=== PATIENT | female | born 1940 | race Caucasian/White ===

== ENCOUNTER → 2016-07-12 | Outpatient (CLI) | payer OTHER | LOC: FIMAGING 12:14 | PROVIDERS: ATTEND Internal Medicine | DX: N28.89 Other specified disorders of kidney and ureter (principal); E11.9 Type 2 diabetes mellitus without complications ==

== ENCOUNTER → 2016-10-31 | Outpatient (CLI) | payer OTHER | LOC: FIMAGING 16:19 | PROVIDERS: ATTEND Internal Medicine | DX: I50.9 Heart failure, unspecified (principal); M25.531 Pain in right wrist ==

== ENCOUNTER → 2016-11-20 | Outpatient (CLI) | payer OTHER | LOC: BHFA 13:15 | PROVIDERS: ATTEND Internal Medicine Cardiovascular Disease | DX: I25.10 Atherosclerotic heart disease of native coronary artery without angina pectoris (principal) ==

== ENCOUNTER → 2016-11-22 | Outpatient (CLI) | payer OTHER | LOC: BHFA 13:30 | PROVIDERS: ATTEND Internal Medicine Cardiovascular Disease | DX: R06.02 Shortness of breath (principal); I77.9 Disorder of arteries and arterioles, unspecified | CPT/HCPCS: 78452; 93017; A9500; J2785 ==

== ENCOUNTER → 2017-01-01 | Outpatient (CLI) | payer OTHER ==
[~2017-01-01] MED LIST: IOPAMIDOL (ISOVUE 370) 100 ML BTL IV ONE
== END ==
LOC: FIMAGING 13:21
PROVIDERS: ATTEND Internal Medicine
DX: N20.0 Calculus of kidney (principal); K44.9 Diaphragmatic hernia without obstruction or gangrene; E78.00 Pure hypercholesterolemia, unspecified; I73.9 Peripheral vascular disease, unspecified; I70.0 Atherosclerosis of aorta; I70.8 Atherosclerosis of other arteries
CPT/HCPCS: 71275; 74160; Q9967

== ENCOUNTER 2017-03-28 20:01 | Inpatient (IN) | payer OTHER ==
--- NOTE | 2017-03-28 20:39 | EDPHY ---
General - History Smoking Status: Never smoked Narrative: CHIEF COMPLAINT: Right-sided headache when coughing HISTORY OF PRESENT ILLNESS: Patient complains of right-sided headache when coughing. This started abruptly 2 days ago. Was is severe, 10/10 pain at that time. The pain was constant for nearly 2 days but has started to improve. It is now only present when she sneezes, coughs or bears down. She has no headache at rest. She feels as though her chest pain may have been worse over the past 2 days. She also feels that her shortness of breath may have been worse over the past few days. She was recently treated for pneumonia by primary care physician Lauri and his complete with this. She has no fever. No difficulty with speech. No unilateral motor or sensory complaints. She does take warfarin status post CABG and previous PE. No other associated complaints or modifying factors. REVIEW OF SYSTEMS: Ten systems reviewed and are negative unless otherwise noted in the HPI PCP: Dr. Negron, transitioning to Dr. Garcia SPECIALISTS: Dr. Hamm, cardiology Dr. Doll, ophthalmology PAST MEDICAL HISTORY: Hypertension, dyslipidemia, coronary artery disease status post CABG, Dupuytren contracture, diabetes mellitus type 2, PE PAST SURGICAL HISTORY: No recent surgeries. s/p CABG SOCIAL HISTORY: Nonsmoker. FAMILY HISTORY: Noncontributory EXAMINATION General Appearance: Alert, no distress Head: normocephalic, atraumatic. No Ibrahim sign. No raccoon eyes. Eyes: Pupils equal and round, no conjunctival pallor or injection. EOMs intact. No nystagmus ENT, Mouth: Mucous membranes moist. Uvula midline. Airway widely patent Neck: Normal inspection, supple, non-tender Respiratory: Lungs are clear to auscultation. No wheeze, rhonchi or crackles Cardiovascular: Regular rate and rhythm Gastrointestinal: Abdomen is soft and nontender Back: non-tender, no bony abnormalities Neurological: GCS 15. Cranial nerves 2-12 grossly intact A&O, nonfocal, strength is symmetric in all 4 limbs. No pronator drift. Normal finger-to- nose. No facial droop. Skin: Warm and dry, no rash. No petechiae or purpura. No facial cellulitis. Extremities: Nontender, no pedal edema Psychiatric: Mood and affect normal DIFFERENTIAL DIAGNOSES: Including but not limited to temporal cell arteritis, intracranial hemorrhage, cephalgia, hypertensive urgency, hypertensive emergency, ACS, TIA, CVA MDM: 8:30 p.m. Intermittent right temporal headache with mild worsening of shortness of breath and chest pain. She has no evidence of stroke by history or examination. No evidence of TIA described. She does take Coumadin and has this headache that is worse intermittently with Valsalva, cough or sneezing. She is in no acute distress but is markedly hypertensive. She has no hypotension or hypoxia. Lungs are clear. I have ordered cardiac workup and CT scan of the head. I will discuss with Dr. Carrasco 8:40 p.m. Case discussed with Dr. Carrasco and he will evaluate the patient. She is currently in CT scan. 9:[address] Carrasco has evaluated the patient. He will assume primary care of the patient at this time. Please see his note for further care and disposition. EKG interpretation: Dr. Carrasco SUPERVISION: Patient was evaluated and examined in conjunction with my secondary supervising physician as documented. We have both examined the patient. (Peyman Hardin) Medical Decision Making: Independent physician evaluation I evaluated and participated in the management of the patient. I also evaluated the patient independently. My co-signature indicates that I have reviewed this chart and I agree with the findings and plan of care as documented. My personal H&P findings include: The patient presents to the ED for evaluation of a several day history of a right temporal headache. The patient reports she is currently being treated for pneumonia. She reportedly sneeze several days ago when she developed an acute right-sided headache. The patient is currently anticoagulated with Coumadin. She denies any acute numbness or weakness. She denies any gait instability or dysarthria. Physical exam General Appearance: Alert, no distress Eyes: Pupils equal and round no pallor or injection Head: No tenderness to palpation along temporal artery ENT, Mouth: Mucous membranes moist Respiratory: There are no retractions, lungs are clear to auscultation Cardiovascular: Regular rate and rhythm Gastrointestinal: Abdomen is soft and nontender, no masses, bowel sounds normal Neurological: A&O, normal motor function, normal sensory exam, normal cranial nerves Skin: Warm and dry, no rashes Musculoskeletal: Neck is supple nontender Extremities: symmetrical, full range of motion Psychiatric: Patient is oriented X 3, there is no agitation ED course The patient was taken for stat CT scan of her head given her anticoagulant use and hypertension with associated headache. There is no evidence of an obvious intracranial hemorrhage on my evaluation. The patient return from CT was noted to have a blood pressure of 250/150. An IV was established. She received 20 mg of labetalol. She was moved into resuscitation room. I reviewed the patient's past medical records in [facility]. The patient is currently on bisprostol, isosorbide and lisinopril. Re-evaluated the patient at 10:00 p.m.. Blood pressure is currently 174/78 with a heart rate of 65. A CT angiogram of the head and neck have been ordered. The patient will require admission to the hospital. Consultation is made with the hospitalist service. The patient will be admitted by Dr. Alcantar from the hospitalist service this evening. I will defer to him to follow up on the patient's angiographic studies. (Michael Carrasco) - Diagnostics EKG Interpretation: EKG: Complete interpretation has been separately recorded in the [facility] archive. Summary impression: Sinus rhythm, PACs, no ST segment elevation noted (Michael Carrasco) Imaging Results: Imaging Impressions Head CTA 03/28/17 00:00 Impression: CT head: 1. No acute or enhancing abnormalities. 2. Moderate generalized volume loss. 3. Chronic supratentorial white matter ischemic changes, better seen on comparison noncontrast CT head performed earlier today. CTAs: 1. Mild stenosis of the right carotid bulb secondary to calcified plaque. 2. Left carotid bulb widely patent status post endarterectomy. 3. Ostial plaque at the origin of the left vertebral artery which may result in mild stenosis. Dr. Guaman discussed these findings by telephone with Hernán Alcantar MD on 03/29/2017 0:[address] 03/28/17 20:29 Impression: 1. No acute intracranial abnormalities. 2. Moderate generalized volume loss. 3. Moderate supratentorial chronic white matter ischemic changes. Chest X-Ray 03/28/17 20:41 Impression: 1. Stable elevation of the left hemidiaphragm and associated left basilar atelectasis. 2. Enlarged cardiac silhouette. Neck CTA 03/28/17 21:49 Impression: CT head: 1. No acute or enhancing abnormalities. 2. Moderate generalized volume loss. 3. Chronic supratentorial white matter ischemic changes, better seen on comparison noncontrast CT head performed earlier today. CTAs: 1. Mild stenosis of the right carotid bulb secondary to calcified plaque. 2. Left carotid bulb widely patent status post endarterectomy. 3. Ostial plaque at the origin of the left vertebral artery which may result in mild stenosis. Dr. Guaman discussed these findings by telephone with Hernán Alcantar MD on 03/29/2017 0:11 hours. - Objective Vital Signs: Initial Vital Signs Temperature (C) 36.4 C 03/28/17 20:08 Heart Rate 65 03/28/17 20:08 Respiratory Rate 16 03/28/17 20:08 Blood Pressure 229/108 H 03/28/17 20:08 O2 Sat (%) 93 03/28/17 20:08 O2 Delivery Mode Room Air Allergies/Adverse Reactions: Heparin Analogues [Heparin Agents] Allergy (Severe, Verified 07/24/12 16:49) HIT amoxicillin [Amoxicillin] Allergy (Verified 06/08/13 04:21) sitagliptin [From Januvia] Allergy (Verified 03/28/17 22:27) Hives SURGICAL TAPE Allergy (Severe, Uncoded 07/24/12 16:49) WELTS Home Medications: Medication Instructions Recorded Atorvastatin Calcium [Lipitor 40 40 mg PO HS #30 tab 06/09/13 mg (*)] Aspirin [Aspirin 81mg (*)] 81 mg PO HS 09/08/15 Cholecalciferol (Vitamin D3) 5,000 unit PO HS 09/08/15 [Vitamin D3] Isosorbide Mononitrate [Imdur 30 30 mg PO HS 09/08/15 mg (*)] Lisinopril [Zestril 40 mg (*)] 40 mg PO HS 09/08/15 Warfarin Sodium [Coumadin 3MG (*)] 3 mg PO SUMOWETHSA@16 09/08/15 Warfarin Sodium [Coumadin 3MG (*)] 4.5 mg PO TUFR@16 09/08/15 metFORMIN SR [Glucophage XR 750 mg 1,500 mg PO HS 09/08/15 (*)] Bisoprolol Fumarate [Zebeta (*)] 5 mg PO DAILY 03/28/17 metFORMIN HCL [Metformin HCl ER] 500 mg PO HS 03/28/17 Laboratory Results: Laboratory Results 03/28/17 21:20 03/28/17 21:20 03/28/17 03/28/17 03/28/17 21:20 21:20 21:20 WBC 6.95 10^3/uL 10^3/uL (3.80-9.50) RBC 5.14 10^6/uL 10^6/uL (4.18-5.33) Hgb 13.8 g/dL g/dL (12.6-16.3) Hct 43.0 % % (38.0-47.0) MCV 83.7 fL fL (81.5-99.8) MCH 26.8 pg L pg (27.9-34.1) MCHC 32.1 g/dL L g/dL (32.4-36.7) RDW 13.7 % % (11.5-15.2) Plt Count 281 10^3/uL 10^3/uL (150-400) MPV 10.3 fL fL (8.7-11.7) Neut % (Auto) 54.9 % % (39.3-74.2) Lymph % (Auto) 35.4 % % (15.0-45.0) [place] % (Auto) 6.0 % % (4.5-13.0) Eos % (Auto) 2.3 % % (0.6-7.6) Baso % (Auto) 1.0 % % (0.3-1.7) Nucleat RBC Rel Count 0.0 % % (0.0-0.2) Absolute Neuts (auto) 3.81 10^3/uL 10^3/uL (1.70-6.50) Absolute Lymphs (auto) 2.46 10^3/uL 10^3/uL (1.00-3.00) Absolute Monos (auto) 0.42 10^3/uL 10^3/uL (0.30-0.80) Absolute Eos (auto) 0.16 10^3/uL 10^3/uL (0.03-0.40) Absolute Basos (auto) 0.07 10^3/uL 10^3/uL (0.02-0.10) Absolute Nucleated RBC 0.00 10^3/uL 10^3/uL (0-0.01) Immature Gran % 0.4 % % (0.0-1.1) Immature Gran # 0.03 10^3/uL 10^3/uL (0.00-0.10) ESR 15 MM/HR MM/HR (0-30) PT 25.1 SEC H SEC (12.0-15.0) INR 2.28 H (0.83-1.16) APTT 41.4 SEC H SEC (23.0-38.0) Sodium 141 mEq/L mEq/L (135-145) Potassium 4.2 mEq/L mEq/L (3.5-5.2) Chloride 103 mEq/L mEq/L (97-110) Carbon Dioxide 21 mEq/l L mEq/l (22-31) Anion Gap 17 mEq/L H mEq/L (8-16) BUN 20 mg/dL mg/dL (7-23) Creatinine 0.9 mg/dL mg/dL (0.6-1.0) Estimated GFR > 60 Glucose 144 mg/dL H mg/dL (70-100) Calcium 9.9 mg/dL mg/dL (8.5-10.4) Troponin I < 0.012 ng/mL ng/mL (0.000-0.034) C-Reactive Protein Cancelled NT-Pro-B Natriuret Pep 1690 pg/mL H pg/mL (0-450) Medications Given: Bisoprolol Fumarate (Zebeta) 5 mg PO DAILY [facility] Stop: 09/25/17 08:59 Last Admin: 03/29/17 08:19 Dose: 5 mg Isosorbide Mononitrate (Imdur) [address] [facility] Stop: 09/24/17 23:44 Last Admin: 03/29/17 00:02 Dose: 30 mg Lisinopril (Zestril) [address] [facility] Stop: 09/24/17 23:44 Last Admin: 03/29/17 00:02 Dose: 40 mg Metformin HCl (Glucophage Xr) 1,[address] [facility] Stop: 09/25/17 00:14 Last Admin: 03/29/17 00:18 Dose: 1,500 mg Metformin HCl (Glucophage Xr) [address] [facility] Stop: 09/25/17 00:14 Last Admin: 03/29/17 00:18 Dose: 500 mg Warfarin Sodium (Coumadin) 4.5 mg PO TUFR@16 [facility] Stop: 09/25/17 00:14 Last Admin: 03/29/17 00:09 Dose: 4.5 mg Discontinued Medications Sodium Chloride (Ns) 1,000 mls @ 1,000 mls/hr IV ONCE ONE Stop: 03/29/17 00:16 Last Admin: 03/29/17 00:01 Dose: 1,000 mls Labetalol HCl (Trandate Injection) 20 mg IVP EDNOW ONE Stop: 03/28/17 21:23 Last Admin: 03/28/17 21:42 Dose: 20 mg Departure - Departure Disposition: [facility] Acute Clinical Impression: Hypertensive urgency Hypertension Qualifiers: Hypertension type: unspecified Qualified Code(s): I10 - Essential (primary) hypertension Acute headache Qualifiers: Headache type: unspecified Intractability: not intractable Qualified Code(s): R51 - Headache Condition: Fair
--- NOTE | 2017-03-28 20:55 | CPEKG ---
Heart Rate: 61 RR Interval: 984 P-R Interval: 176 QRSD Interval: 92 QT Interval: 420 QTC Interval: 423 P [place]: 39 QRS [place]: 5 T Wave [place]: 99 EKG Severity - ABNORMAL ECG - EKG Impression: SINUS RHYTHM EKG Impression: MULTIPLE ATRIAL PREMATURE COMPLEXES Electronically Signed By: Michael Carrasco 28-Mar-2017 21:38:26
[2017-03-28] MEDS ORDERED: LABETALOL HCL 5 MG/ML 20 ML MDV IVP ONE (21:22)
[2017-03-28 21:31] LABS: PLATELET COUNT 281 10^3/uL (150-400)
[2017-03-28 21:42] LABS: INR 2.28 (0.83-1.16); PROTIME(PATIENT) 25.1 SEC (12.0-15.0)
[2017-03-28] MEDS ORDERED: IOPAMIDOL (ISOVUE 370) 100 ML BTL IV ONE (21:57)
[2017-03-28] MEDS ORDERED: ONDANSETRON DISINTEGRATING 4 MG TAB PO PRN (22:15)
[2017-03-28] MEDS ORDERED: ONDANSETRON 4 MG/2 ML VIAL IVP PRN (22:15)
[2017-03-28] MEDS ORDERED: NS 1,000 ML IV ONE (23:17)
--- NOTE | 2017-03-28 23:48 | PDGENHP ---
History and Physical - Chief Complaint Headache - History of Present Illness 76 yo F w/ hx of CAD s/p CABG, PE on warfarin, HTN, and DM presents with IYER. Patient reports she was recently diagnosed with pneumonia and finished a course of azithromycin. During a sneeze she noticed sudden onset of severe R temporal pain. This occurred 2 days ago and had improved gradually since. She decided to come in today for further evaluation. In the ED her BP was noted to be severely elevated (SBP>220) so she was admitted for observation. History Information - Allergies/Home Medication List Allergies/Adverse Reactions: Heparin Analogues [Heparin Agents] Allergy (Severe, Verified 07/24/12 16:49) HIT amoxicillin [Amoxicillin] Allergy (Verified 06/08/13 04:21) sitagliptin [From Januvia] Allergy (Verified 03/28/17 22:27) Hives SURGICAL TAPE Allergy (Severe, Uncoded 07/24/12 16:49) WELTS Home Medications: Aspirin [Aspirin 81mg (*)] 81 mg PO HS 09/08/15 [Last Taken 03/27/17] Cholecalciferol (Vitamin D3) [Vitamin D3] 5,000 unit PO HS 09/08/15 [Last Taken 09/07/15] Isosorbide Mononitrate [Imdur 30 mg (*)] 30 mg PO HS 09/08/15 [Last Taken ] Lisinopril [Zestril 40 mg (*)] 40 mg PO HS 09/08/15 [Last Taken 03/27/17] Warfarin Sodium [Coumadin 3MG (*)] 3 mg PO SUMOWETHSA@16 09/08/15 [Last Taken ] Warfarin Sodium [Coumadin 3MG (*)] 4.5 mg PO TUFR@16 09/08/15 [Last Taken ] metFORMIN SR [Glucophage XR 750 mg (*)] 1,500 mg PO HS 09/08/15 [Last Taken 02/01] Bisoprolol Fumarate [Zebeta (*)] 5 mg PO DAILY 03/28/17 [Last Taken 03/28/17] metFORMIN HCL [Metformin HCl ER] 500 mg PO HS 03/28/17 [Last Taken 03/27/17] I have personally reviewed and updated: family history, medical history - Past Medical History coronary artery disease, diabetes type 2, DVT, hypertension - Surgical History Reports: coronary bypass surgery Additional surgical history: L CEA - Family History Positive for: stroke - Social History Smoking Status: Never smoked Review of Systems Review of Systems: ROS: 10pt was reviewed & negative except for what was stated in HPI & below Physical Exam Physical Exam: Temp Pulse Resp BP Pulse Ox 36.4 C 64 16 191/73 H 94 03/28/17 20:08 03/28/17 23:04 03/28/17 23:04 03/28/17 23:04 03/28/17 23:04 Constitutional: no apparent distress, not in pain Eyes: PERRL, EOMI Ears, Nose, Mouth, Throat: moist mucous membranes, no oral mucosal ulcers Cardiovascular: regular rate and rhythym, systolic murmur (LSB, 2/6) Respiratory: no respiratory distress, inspiratory crackles (LLL) Gastrointestinal: normoactive bowel sounds, soft, non-tender abdomen Skin: warm, normal color Musculoskeletal: full muscle strength, no muscle tenderness Neurologic: AAOx3, CN II-XII Intact Psychiatric: interacting appropriately, not anxious Lab Data & Imaging Review 03/28/17 21:20 03/28/17 21:20 WBC 6.95 10^3/uL (3.80-9.50) 03/28/17 21:20 RBC 5.14 10^6/uL (4.18-5.33) 03/28/17 21:20 Hgb 13.8 g/dL (12.6-16.3) 03/28/17 21:20 Hct 43.0 % (38.0-47.0) 03/28/17 21:20 MCV 83.7 fL (81.5-99.8) 03/28/17 21:20 MCH 26.8 pg (27.9-34.1) L 03/28/17 21:20 MCHC 32.1 g/dL (32.4-36.7) L 03/28/17 21:20 RDW 13.7 % (11.5-15.2) 03/28/17 21:20 Plt Count 281 10^3/uL (150-400) 03/28/17 21:20 MPV 10.3 fL (8.7-11.7) 03/28/17 21:20 Neut % (Auto) 54.9 % (39.3-74.2) 03/28/17 21:20 Lymph % (Auto) 35.4 % (15.0-45.0) 03/28/17 21:20 [place] % (Auto) 6.0 % (4.5-13.0) 03/28/17 21:20 Eos % (Auto) 2.3 % (0.6-7.6) 03/28/17 21:20 Baso % (Auto) 1.0 % (0.3-1.7) 03/28/17 21:20 Nucleat RBC Rel Count 0.0 % (0.0-0.2) 03/28/17 21:20 Absolute Neuts (auto) 3.81 10^3/uL (1.70-6.50) 03/28/17 21:20 Absolute Lymphs (auto) 2.46 10^3/uL (1.00-3.00) 03/28/17 21:20 Absolute Monos (auto) 0.42 10^3/uL (0.30-0.80) 03/28/17 21:20 Absolute Eos (auto) 0.16 10^3/uL (0.03-0.40) 03/28/17 21:20 Absolute Basos (auto) 0.07 10^3/uL (0.02-0.10) 03/28/17 21:20 Absolute Nucleated RBC 0.00 10^3/uL (0-0.01) 03/28/17 21:20 Immature Gran % 0.4 % (0.0-1.1) 03/28/17 21:20 Immature Gran # 0.03 10^3/uL (0.00-0.10) 03/28/17 21:20 ESR 15 MM/HR (0-30) 03/28/17 21:20 PT 25.1 SEC (12.0-15.0) H 03/28/17 21:20 INR 2.28 (0.83-1.16) H 03/28/17 21:20 APTT 41.4 SEC (23.0-38.0) H 03/28/17 21:20 Sodium 141 mEq/L (135-145) 03/28/17 21:20 Potassium 4.2 mEq/L (3.5-5.2) 03/28/17 21:20 Chloride 103 mEq/L (97-110) 03/28/17 21:20 Carbon Dioxide 21 mEq/l (22-31) L 03/28/17 21:20 Anion Gap 17 mEq/L (8-16) H 03/28/17 21:20 BUN 20 mg/dL (7-23) 03/28/17 21:20 Creatinine 0.9 mg/dL (0.6-1.0) 03/28/17 21:20 Estimated GFR > 60 03/28/17 21:20 Glucose 144 mg/dL (70-100) H 03/28/17 21:20 Calcium 9.9 mg/dL (8.5-10.4) 03/28/17 21:20 Troponin I < 0.012 ng/mL (0.000-0.034) 03/28/17 21:20 C-Reactive Protein Cancelled 03/28/17 21:20 NT-Pro-B Natriuret Pep 1690 pg/mL (0-450) H 03/28/17 21:20 Imaging Review: Imaging Impressions Head CT 03/28/17 20:29 Impression: 1. No acute intracranial abnormalities. 2. Moderate generalized volume loss. 3. Moderate supratentorial chronic white matter ischemic changes. Chest X-Ray 03/28/17 20:41 Impression: 1. Stable elevation of the left hemidiaphragm and associated left basilar atelectasis. 2. Enlarged cardiac silhouette. Visualized and Interpreted EKG results: Yes EKG Interpretation: Positive for: normal sinsus rhythm, other (multiple PACs) Assessment & Plan Assessment: 76 yo F w/ hx of CAD, PE, HTN, and DM presents w/ R temporal IYER and found to be severely hypertensive. Plan: 1. Chronic, essential hypertension c/b acute hypertensive urgency - Noted to have SBP>220 while in the ED. Treated with Labetalol 20 mg IV x1 with good response to SBP 170-180 range. Review of PCP records shows BP of 139/80 during office visit 03/25, so odd for such a drastic elevation in just a 3 day period. Recent illness, pain, stress, and dehydration are possible explanations, but admitted for observation noting severe elevation. No clear evidence of end organ damage at this time. Troponin negative and ECG without signs of ischemia. - Will continue home Lisinopril 40 mg qHS, Imdur 30 mg qHS, and Bisoprolol 5 mg qD for now and monitor BP - Will give 1 L NS in case dehydration is contributing 2. R temporal headache - Present for 2 days with onset after a sneeze. Temporal nature concerning for temporal cell arteritis but ESR WNL making this a very unlikely diagnosis. Additionally, although patient complains of subtle blurred vision with her glasses on only, no real objective visual loss currently. CTH unremarkable. - Low threshold to start high dose steroids if visual disturbance were to worsen or change - CTA Head/neck for further evaluation 3. CAD s/p CABG - Continue ASA, statin, BB, DICKSON. 4. 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 Continue warfarin and monitor daily INR. 5. DM2 - On metformin chronically, will continue. Diet - Regular Code - Full Ppx - Warfarin Dispo - Admit to PCU for observation
[2017-03-28] MEDS ORDERED: WARFARIN SODIUM 3 MG TAB PO SCH (23:51)
[2017-03-29] MEDS ORDERED: metFORMIN SR 750 MG TAB.SR PO SCH ×2 (00:01→21:00)
[2017-03-29] MEDS: LISINOPRIL 40 MG TAB PO SCH ×2 (00:02→19:54)
[2017-03-29] MEDS: ISOSORBIDE MONONITRATE 30 MG TAB.SR PO SCH ×2 (00:02→19:56)
[2017-03-29] MEDS ORDERED: WARFARIN SODIUM 3 MG TAB PO SCH (00:15)
[2017-03-29] MEDS ORDERED: metFORMIN SR 500 MG TAB PO SCH ×2 (00:15→21:00)
[2017-03-29] MEDS: metFORMIN SR 500 MG TAB PO SCH ×2 (00:18→21:50)
[2017-03-29] MEDS: metFORMIN SR 750 MG TAB.SR PO SCH ×2 (00:18→21:50)
[2017-03-29 04:39] LABS: PLATELET COUNT 235 10^3/uL (150-400)
[2017-03-29 04:51] LABS: INR 2.35 (0.83-1.16); PROTIME(PATIENT) 25.7 SEC (12.0-15.0)
[2017-03-29] MEDS ORDERED: BISOPROLOL FUMARATE 5 MG TAB PO SCH (09:00)
--- NOTE | 2017-03-29 11:12 | NEUROPROG ---
Assessment: HOSPITAL NEUROLOGY CONSULT REQUESTING: Pilar Trimble MD REASON: headache HPI: 76 year old left-handed woman who presented to our ED 03/28 with abrupt onset right temporal headache. She has a background of CAD s/p CABG. She reports a TIA manifest as slurred speech after her CABG. She had a left CEA for asymptomatic carotid stenosis with resulting ipsilateral vocal cord paralysis and left neck numbness. She also is anticoagulated to PE. She is being treated for HTN, HLD, DM2. She recently finished a course of outpatient oral antibiotics for pneumonia for which symptoms manifested about 2 weeks ago. 2 days prior to admission she had a sudden onset of right temporal headache. She sneezed and had sudden onset of very brief "searing" pain. She states the head pain would only manifest with coughing, sneezing or clearing her throat, last a few seconds, and then she would be pain free. She also noted some blurring of her vision (both eyes), though this was very mild. This was of great concern so she reported to our ED on 03/28. On evaluation, she was found to have a BP of 218/108. This was treated with labetalol IV, with gradual improvement in her BP. She had a CT head wo, which showed nothing acute including new ischemia or hemorrhage. CTA head/neck was also done showing no aneurysm or hemodynamically significant stenosis of the major vessels. ESR was 15. She was admitted for further observation. She reports her headaches have improved greatly in severity since her BP was treated, but there is still some lingering pain with coughing, sneezing and throat clearing. She did not experience any focal neurologic deficits, such as weakness, sensory loss, speech /language change, gait change, dizziness. No fevers, chills, neck stiffness, photophobia. No jaw claudication, scalp tenderness. No positional headache. No head/neck injury. No recent head/neck/dental instrumentation. ROS: As per the HPI, otherwise a complete 12 point ROS was performed and is negative ALLERGIES AND MEDS: As recorded in the EMR - reviewed and reconciled PFSH: As per the intake H&P by Dr. Alcantar from 03/28 EXAM: VS reviewed in EMR GEN: WDWN laying in NAD HEENT: NCAT, sclera anicteric, conjunctiva not injected, MMM, oropharynx clear, no scalp tenderness NECK: supple, nontender, no meningismus CV: RRR s1 s2 wo m/r/c/g. Carotid pulses 2+ wo bruit NEURO: MS: awake, alert, oriented to all spheres. Speech nondysarthric. No language disturbance. Follows commands. Attends to both sides. Recent/remote memory grossly intact. Mood euthymic. Good fund of knowledge. CN: pupils 3mm round and reactive. Unable to visualize fundi. VFF. Primary gaze centered. Full ocular motility. Facial sensation preserved. Face symmetric. Hearing grossly intact to finger rub. Palatoglossal movements intact. Shoulder shrug and head turn strong. MOTOR: normal bulk/tone. No adventitial movements. Bilateral hip flexor weakness at 4+/5, but otherwise full power throughout. SENSORY: symmetric and intact LT/PP throughout. No extinction. COORD: no ataxia FN/HS. Gurmeet preserved. REFLEX: plantars down. No clonus. Absent ankle jerks, other DTRS 2/4. GAIT: deferred to PT safety eval DATA REVIEW: Labs reviewed in EMR PERSONALLY INTERPRETED RESULTS AND DATA: CT head wo - global volume loss, hypodensity in the subcortical/periventricular white matter reflective of chronic microvascular ischemic change CTA head/neck - s/p left CEA, which is patent, about 40% stenosis right carotid bulb, left vertebral artery stenotic at takeoff (noncritical), carotid siphon calcifications without hemodynamically significant stenosis, otherwise unremarkable IMPRESSION AND RECOMMENDATIONS: // HYPERTENSIVE EMERGENCY // VALSALVA INDUCED IYER Patient with a Valsalva-induced IYER in the setting of extremely elevated BP. Symptoms improved with treatment of BP. Very much likely a hypertensive phenomenon with worsening pressure with Valsalva-like maneuvers given the semiology. I suspect her lingering symptoms will continue to improve in the next 2-3 days with maintenance of reduced BP. She is not interested in any symptomatic treatments and would like to just see how her symptoms progress over the next 2-[address] and CTA doesn't show anything sinister, such as SAH, IPH, aneurysm, acute /subacute ischemia, mass/space occupying lesion, etc... Clinical semiology not typical for inflammatory process like and her ESR is normal. She has an unremarkable clinical exam. I advised she take home BP measures twice daily and followup with her PCP next week. She can followup with me in clinic in 2 weeks. ED return parameters reviewed, including but not limited to worsening IYER, escalation in BP, new neurologic deficits, nausea/vomiting, change in LOC, cognitive changes. 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
[2017-03-29] MEDS: ACETAMINOPHEN 325 MG TAB PO PRN (13:17)
[2017-03-29] MEDS ORDERED: METOPROLOL TARTRATE 25 MG TAB PO ONE (14:30)
--- NOTE | 2017-03-29 15:53 | ASMTCMCOM ---
CM Note CM Note Notes: Patient admitted for hypertensive urgency. Neurology saw today and recommended that she follow up with PCP and also with neuro in two weeks. Patient will likely discharge independently; no therapies were ordered, and she is independent at baseline. CM available if needs change. Date Signed: 03/29/2017 03:52 PM Electronically Signed By:Hansa Eid RN
[2017-03-29] MEDS: WARFARIN SODIUM 3 MG TAB PO SCH (16:50)
--- NOTE | 2017-03-29 17:34 | HOSPPROG ---
Hospitalist Progress Note Assessment/Plan: # Hypertensive urgency - systolic blood pressures improved overnight initially systolics in the 200s now in the 170's Telemetry(personally reviewed and interpreted) sinus rhythm Oxygen saturations 94% on room air - discontinue bisoprolol - continue DICKSON-inhibitor - up titrate metoprolol twice daily # Valsalva induced headache- CTA head - no concerning findings patient seen by Neurology who felt symptoms consistent with hypertension and history of Valsalva - aggressive blood pressure management - p.r.n. Tylenol # prophylaxis Lovenox # diet regular # disposition greater than 2 midnights as patient requires ongoing medication titration Have discussed the case with the RN- will initiate metoprolol 12.5 and up titrated to 25 mg this evening Subjective: Right temporal pain improved Objective: Vital Signs Temp Pulse Resp BP Pulse Ox 36.7 C 67 18 153/77 H 93 03/29/17 16:00 03/29/17 16:00 03/29/17 16:00 03/29/17 16:00 03/29/17 16:00 Laboratory Results 03/29/17 04:11 03/29/17 04:11 03/28/17 03/29/17 03/30/17 05:59 05:59 05:59 Intake Total 1210 200 Balance 1210 200 PT 25.7 SEC (12.0-15.0) H 03/29/17 04:11 INR 2.35 (0.83-1.16) H 03/29/17 04:11 - Physical Exam Constitutional: no apparent distress Eyes: anicteric sclera Ears, Nose, Mouth, Throat: moist mucous membranes Cardiovascular: regular rate and rhythym, systolic murmur Respiratory: no respiratory distress Gastrointestinal: normoactive bowel sounds Genitourinary: no bladder fullness Skin: warm Musculoskeletal: No asymmetric calves Neurologic: AAOx3, No facial droop Psychiatric: interacting appropriately Lymph, Heme, Immunologic: no cervical LAD ICD10 Worksheet Patient Problems: Problems Problem Status Onset Acute headache Acute Hypertension Acute Hypertensive urgency Acute Chest pain Acute Hydronephrosis with ureteral calculus Acute Renal colic on right side Acute
--- NOTE | 2017-03-29 18:12 | PDMN ---
Medical Necessity Medical necessity: C/M review: est. > 2 MN LOS for eval and TX of acute hypertensive urgency, persistent elevated systolic blood pressures in 200's initially now in 170's, valsalva induced headache requiring ongoing cardiac monitoring, antihypertensive medication titration, frequent VS monitoring, aggressive blood pressure management per 03/29/2017 Hospitalist progress note.
[2017-03-29] MEDS: ASPIRIN 81 MG CHEWABLE TAB PO SCH (19:55)
[2017-03-29] MEDS: ATORVASTATIN CALCIUM 40 MG TAB PO SCH (19:55)
[2017-03-29] MEDS ORDERED: METOPROLOL TARTRATE 25 MG TAB PO SCH (21:00)
[2017-03-29] MEDS: CHOLECALCIFEROL VIT D3 1,000 UNITS TAB PO SCH (21:50)
[2017-03-30 04:49] LABS: INR 2.19 (0.83-1.16); PROTIME(PATIENT) 24.4 SEC (12.0-15.0)
[2017-03-30] MEDS: LABETALOL HCL 100 MG TAB PO SCH ×2 (09:10→19:59)
[2017-03-30] MEDS: ACETAMINOPHEN 325 MG TAB PO PRN (14:34)
[2017-03-30] MEDS: WARFARIN SODIUM 3 MG TAB PO SCH (16:36)
--- NOTE | 2017-03-30 16:41 | HOSPPROG ---
Hospitalist Progress Note Assessment/Plan: # Hypertensive urgency - systolic blood pressures - rebounded back to the 180s in 190s overnight Telemetry (personally reviewed and interpreted) sinus rhythm 50-60's Oxygen saturations 94% on room air - discontinue metoprolol - start labetalol 100 mg twice daily - continue DICKSON-inhibitor - continue cardiac monitoring # Valsalva induced headache- CTA head - no concerning findings patient seen by Neurology who felt symptoms consistent with hypertension and history of Valsalva - aggressive blood pressure management - p.r.n. Tylenol # prophylaxis Lovenox # diet regular # disposition greater than 2 midnights as patient requires ongoing medication titration Have discussed the case with the RN- we will initiate labetalol this morning and closely titrate -goal systolic blood pressure between 140 and 160 Subjective: temporal headachae improved Objective: Vital Signs Temp Pulse Resp BP Pulse Ox 36.4 C 65 14 135/67 H 90 L 03/30/17 16:00 03/30/17 16:00 03/30/17 16:00 03/30/17 16:00 03/30/17 16:00 03/29/17 03/30/17 03/31/17 05:59 05:59 05:59 Intake Total 400 Balance 400 PT 24.4 SEC (12.0-15.0) H 03/30/17 03:59 INR 2.19 (0.83-1.16) H 03/30/17 03:59 - Physical Exam Constitutional: no apparent distress Eyes: anicteric sclera Ears, Nose, Mouth, Throat: moist mucous membranes Cardiovascular: regular rate and rhythym Respiratory: no respiratory distress Gastrointestinal: normoactive bowel sounds Genitourinary: no bladder fullness Skin: warm Musculoskeletal: No asymmetric calves Neurologic: AAOx3 Psychiatric: interacting appropriately, not anxious Lymph, Heme, Immunologic: no cervical LAD ICD10 Worksheet Patient Problems: Problems Problem Status Onset Acute headache Acute Hypertension Acute Hypertensive urgency Acute Chest pain Acute Hydronephrosis with ureteral calculus Acute Renal colic on right side Acute
[2017-03-30] MEDS: CHOLECALCIFEROL VIT D3 1,000 UNITS TAB PO SCH (19:59)
[2017-03-30] MEDS: ATORVASTATIN CALCIUM 40 MG TAB PO SCH (19:59)
[2017-03-30] MEDS: LISINOPRIL 40 MG TAB PO SCH (19:59)
[2017-03-30] MEDS: ISOSORBIDE MONONITRATE 30 MG TAB.SR PO SCH (19:59)
[2017-03-30] MEDS: ASPIRIN 81 MG CHEWABLE TAB PO SCH (19:59)
[2017-03-30] MEDS: metFORMIN SR 750 MG TAB.SR PO SCH (20:00)
[2017-03-30] MEDS: metFORMIN SR 500 MG TAB PO SCH (20:00)
[2017-03-31 04:43] LABS: INR 2.38 (0.83-1.16)
[2017-03-31 07:59] VITALS: BP 166/91; PULSE 65; RESP 18; TEMP 97.6; O2SAT 91
[2017-03-31] MEDS: LABETALOL HCL 100 MG TAB PO SCH (08:06)
--- NOTE | 2017-03-31 18:37 | GDS ---
[f rep st] DISCHARGE SUMMARY DISCHARGE DIAGNOSES: Include: 1. Hypertensive urgency. 2. Valsalva-induced headache. 3. Coronary artery disease. 4. Atrial fibrillation. HISTORY OF PRESENT ILLNESS: This is a 76-year-old female with multiple medical comorbidities, who pr esents with acute onset of right temporal headache. For details of patient's initial presentation, royce gonzalez see the history and physical dated 03/29/2016. CONSULTATIVE SERVICES: Include Neurology. PROCEDURES: On 03/29/2017, patient underwent noncontrast CT of the head, showed no acute intracrania l findings. On 03/29/2017, patient underwent CTA of the head that showed no stenoses of her intracer ebral vessels. HOSPITAL COURSE: By issue: 1. Hypertensive urgency. Patient presented and had systolic blood pressures in the 200s at presenta tion. Was treated with IV push of labetalol and had improvement in her blood pressure control during her 1st evening of hospitalization. Following morning, on her normal home medications, patient had rebound hypertension with systolic blood pressures in the 180s to 190s. Patient was taken off her ho me dosing of bisoprolol and initiated on metoprolol b.i.d. The subsequent 24 hours on metoprolol, th ere was no meaningful improvement in her blood pressure, with systolics remaining high in the 190s. It was decided to discontinue metoprolol and switch to labetalol. Patient was initiated on 100 mg b. i.d. of labetalol and had marked improvement in her hypertension control. On the day of disposition, her systolic blood pressures are in the 140s to 150s. Patient is being discharged on labetalol 100 mg b.i.d., with the opportunity for up-titration by her primary care provider if desired in the outpa tient setting. Patient was continued on her home dosing of isosorbide, as well as her ARB. Was take n off her bisoprolol and exchanged for her labetalol. 2. Coronary artery disease. Patient was continued on her home medications. No risk stratification was performed during the stay as patient did not have complaints of chest pain. 3. Acute right temporal headache thought secondary to a Valsalva-induced headache. Patient's headac he did improve through the course of her hospital stay with improved blood pressure management. Lisbeth ent was seen by Neurology, who did not feel that there was a more concerning cause for her headache, and did not recommend more imaging beyond CTA of the head and noncontrast CT of the head. Patient wi ll follow in the outpatient setting with her PCP for ongoing monitoring of the right temporal headach e. MEDICATIONS AT THE TIME OF TRANSFER: Please reference the med rec printed on 03/31/2017. FOLLOWUP APPOINTMENTS: Include with her PCP in the next 7-10 days for a blood pressure check and mon itoring. PENDING STUDIES: At the time of this dictation are none. TIME SPENT: I spent greater than 30 minutes in the planning and coordination of this discharge. /[id number]/MODL
--- NOTE | 2017-04-01 12:46 | ASDISCHSUM ---
Discharge Information Plan Status:Home with No Needs Medically Cleared to Leave:03/30/2017 Discharge Date:03/31/2017 12:45 PM CM D/C Disposition: ADT D/C Disposition:Home, Routine, Self-Care Projected Discharge Date:03/31/2017 12:00 AM Transportation at D/C: Discharge Delay Reason: Follow-Up Date:03/31/2017 12:00 AM Discharge Slot: Final Diagnosis: Placement Information Patient Contact Information Contact Name:CAROLYN Relationship:Daughter Address: City:[place] Alternate Phone: [facility]/Zip Code:[place] Email: Financial Information Financial Class: Primary Plan Desc:MEDICARE INPATIENT Primary Plan Number:[id number] Secondary Plan Desc:[employer] Secondary Plan Number:[id number] Assessment Information [facility] CM Progress Note CM Note CM Note Notes: Patient admitted for hypertensive urgency. Neurology saw today and recommended that she follow up with PCP and also with neuro in two weeks. Patient will likely discharge independently; no therapies were ordered, and she is independent at baseline. CM available if needs change. Date Signed: 03/29/2017 03:52 PM Electronically Signed By:Hansa Eid RN Intervention Information
[2017-04-01] MEDS ORDERED: WARFARIN SODIUM 3 MG TAB PO SCH (16:00)
== END 2017-03-31 12:45 | disposition home or self-care (01) | DRG 305 ==
LOC: F2W 23:30 → OBSVTOIN 03-29 18:03
PROVIDERS: ADMIT Student in an Organized Health Care Education/Training Program; ATTEND Hospitalist
DX: I16.0 Hypertensive urgency (principal); I25.10 Atherosclerotic heart disease of native coronary artery without angina pectoris; E11.9 Type 2 diabetes mellitus without complications; E78.5 Hyperlipidemia, unspecified; I48.91 Unspecified atrial fibrillation; Z79.01 Long term (current) use of anticoagulants; Z95.1 Presence of aortocoronary bypass graft; Z86.711 Personal history of pulmonary embolism
CPT/HCPCS: 96374; 97161-GP; G0378; G8978-GP-CH; G8979-GP-CH; G8980-GP-CH; J3490; Q9967

== ENCOUNTER → 2017-05-01 | Outpatient (CLI) | payer OTHER | LOC: BHFA 13:00 | PROVIDERS: ATTEND Internal Medicine Cardiovascular Disease | DX: R07.9 Chest pain, unspecified (principal); I25.10 Atherosclerotic heart disease of native coronary artery without angina pectoris | CPT/HCPCS: 78452; 93017; A9500; J2785 ==

== ENCOUNTER → 2017-05-15 | Outpatient (CLI) | payer OTHER | LOC: BHFA 14:45 | PROVIDERS: ATTEND Internal Medicine Cardiovascular Disease | DX: I10 Essential (primary) hypertension (principal); R06.02 Shortness of breath; R07.9 Chest pain, unspecified ==

== ENCOUNTER → 2017-09-12 | Outpatient (CLI) | payer OTHER | LOC: FIMAGING 18:01 | PROVIDERS: ATTEND Physical Medicine & Rehabilitation | DX: M54.9 Dorsalgia, unspecified (principal); M51.36 Other intervertebral disc degeneration, lumbar region; M51.26 Other intervertebral disc displacement, lumbar region; M50.30 Other cervical disc degeneration, unspecified cervical region ==

== ENCOUNTER → 2018-01-12 | Outpatient (CLI) | payer OTHER | LOC: FIMAGING 13:04 | PROVIDERS: ATTEND Internal Medicine | DX: R91.8 Other nonspecific abnormal finding of lung field (principal) ==

== ENCOUNTER 2018-02-23 07:59 | Day surgery (SDC) | payer OTHER ==
[2018-02-23] MEDS ORDERED: FAMOTIDINE 20 MG TAB PO ONE (08:01)
[2018-02-23] MEDS ORDERED: DIAZEPAM 5 MG TAB PO ONE (08:01)
[2018-02-23] MEDS ORDERED: diphenhydrAMINE 25 MG CAP PO ONE ×2 (08:01→08:31)
[2018-02-23] MEDS ORDERED: NS 1,000 ML IV ONE (08:01)
[2018-02-23] MEDS ORDERED: ASPIRIN EC 325 MG TAB PO ONE ×2 (08:01→08:32)
[2018-02-23] MEDS ORDERED: MIDAZOLAM 2 MG/2 ML VIAL ONE (08:04)
[2018-02-23] MEDS ORDERED: IOPAMIDOL (ISOVUE-370) 150 ML BTL IV ONE (08:04)
[2018-02-23] MEDS ORDERED: LIDOCAINE 1% 300 MG/30 ML SDV ONE (08:04)
[2018-02-23] MEDS ORDERED: fentaNYL 100 MCG/2 ML INJ ONE (08:04)
[2018-02-23] MEDS ORDERED: DIAZEPAM 5 MG TAB ONE (08:32)
[2018-02-23] MEDS ORDERED: FAMOTIDINE 20 MG TAB ONE (08:32)
[2018-02-23 08:40] LABS: PLATELET COUNT 257 10^3/uL (150-400)
[2018-02-23 08:48] LABS: INR 1.42 (0.83-1.16); PROTIME(PATIENT) 17.5 SEC (12.0-15.0)
--- NOTE | 2018-02-23 08:59 | PDPROPOC ---
Sedation Plan of Care Sedation Plan of Care: vital signs stable, mental status noted, patient educated of risks, benefits, alternatives, patient can tolerate sedation ASA Classification: ASA 2 Planned drugs: fentanyl, midazolam Mallampati Score: Class 2 Mallampati Reference Image: Patient passed 3-3-2 rule?: Yes
--- NOTE | 2018-02-23 08:59 | PDHPUP ---
History & Physical Update H&P update statement: This history and physical update is based on an assessment of the patient which was completed after admission or registration (within 24 hours), but prior to the surgery/procedure. H&P update: H&P reviewed & patient examined, no change in patient's condition since H&P completed
[2018-02-23] MEDS ORDERED: HYDROCODONE/APAP 5/325 TAB PO PRN (10:49)
[2018-02-23] MEDS ORDERED: NITROGLYCERIN 0.4 MG BTL SL PRN (10:49)
[2018-02-23] MEDS ORDERED: ONDANSETRON 4 MG/2 ML VIAL IVP PRN (10:49)
[2018-02-23] MEDS ORDERED: ATROPINE SULFATE 1 MG/10 ML SYR IVP PRN (10:49)
[2018-02-23] MEDS ORDERED: OXYCODONE/APAP 5/325 TAB PO PRN (10:49)
--- NOTE | 2018-02-23 11:22 | PDDXCAT ---
Diagnostic Cath Note - . Date: 02/23/18 Ring Facer: Velma Head Irrigator: Other (Kirti) Indication: Class I/II angina, intolerance to med therapy or failure to respond - Procedure Access: right groin Procedure: left heart catheterization ( ), coronary angiography, PEPE injection , right heart catheterization - Materials Left Heart Cath size: 6F Left Heart Cath materials: standard multipack (JL4, JR4, pigtail), other ( Angled glide wire and angled catheter for PEPE access) - Findings-Left Heart Catheterization LM: Mild luminal irregularities. Bifurcates in the LAD left circumflex LAD: Diffusely diseased with serial 80% lesions. 1st principal diagonal has 80 % proximal disease. LCX: Diffusely disease. 1st obtuse marginals 100% occluded in its proximal portion RCA: 40% mid vessel disease. 50% stenosis before distal trifurcation. Right dominant. Collaterals to the left coronary system. PEPE: Patent. Retrograde filling of the LAD. EDP: 34 LVEF: Not performed due to patient's creatinine - Findings-Right Heart Catheterization RA: Average of 13 RV: 45/5 PA: He 48/8 with a mean of 29 PAOP: Did not wedge catheter AO: 155/66. No gradient upon pullback of the catheter from the left ventricle to the aorta. CO: 3.8 liters/minute CI: 2.25 L per minute per meter squared Complications: None Estimated blood loss: <50ml Closure method: Angioseal Assessment: Severe jamul LAD/diagonal and left circ/OM disease. Moderate RCA disease with collaterals to left system. Patent PEPE to the LAD. Elevated right and left heart filling pressures with mild pulmonary hypertension. Plan: Intensify medical management with Lasix 40 mg daily. Basic metabolic panel in 1 week Follow-up as scheduled in 1 week for groin check Continue anti anginal therapy with beta-shakira, calcium channel shakira, and Imdur Patient Problems: Problems Problem Status Onset Acute headache Acute Chest pain Acute Hydronephrosis with ureteral calculus Acute Hypertension Acute Hypertensive urgency Acute Renal colic on right side Acute
--- NOTE | 2018-02-23 16:14 | CPEKG ---
Test Reason : OPEN Blood Pressure : / mmHG Vent. Rate : 057 BPM Atrial Rate : 057 BPM P-R Int : 176 ms QRS Dur : 094 ms QT Int : 437 ms P-R-T Axes : 056 015 112 degrees QTc Int : 426 ms Sinus rhythm Confirmed by Serafin Rodríguez ([id number]) on 02/23/2018 4:13:49 PM Referred By: Confirmed By:Serafin Rodríguez
== END 2018-02-23 14:15 | disposition home or self-care (01) ==
LOC: FCATH 07:59
PROVIDERS: ATTEND Internal Medicine Cardiovascular Disease
PROC: 4A023N8 Measurement of Cardiac Sampling and Pressure, Bilateral, Percutaneous Approach (ICD-10-PCS; principal; 2018-02-23)
PROC: B2151ZZ Fluoroscopy of Left Heart using Low Osmolar Contrast (ICD-10-PCS; principal; 2018-02-23)
PROC: B2111ZZ Fluoroscopy of Multiple Coronary Arteries using Low Osmolar Contrast (ICD-10-PCS; principal; 2018-02-23)
DX: I25.10 Atherosclerotic heart disease of native coronary artery without angina pectoris (principal); I27.20 Pulmonary hypertension, unspecified; I20.9 Angina pectoris, unspecified; I10 Essential (primary) hypertension
CPT/HCPCS: 93005; 93461; C1769; C1760; J1644; J2250; J3010; Q9967

== ENCOUNTER → 2018-03-23 | Outpatient (CLI) | payer OTHER | LOC: BHFA 15:30 | PROVIDERS: ATTEND Internal Medicine Cardiovascular Disease | DX: I77.9 Disorder of arteries and arterioles, unspecified (principal); I73.9 Peripheral vascular disease, unspecified ==